=== PATIENT | female | born 1955 | race Caucasian/White ===

== ENCOUNTER 2016-10-26 11:07 | Emergency (ER) | payer OTHER ==
[~2016-10-26 11:07] MED LIST: AMLODIPINE BESY10 MG PO; AZULFIDINE500 MG PO; B COMPLEX; BIOTIN5000 MCG PO; BUPROPION HCL150 M2 PO; CYMBALTA60 MG PO; ESTRADIOL PO; EXCEDRIN MIGRAINE PO; EXCEDRIN TENSION HEA PO; FENTANYL75 MCG/HR TOP; HYDROCHLOROTHIA25 MG PO; IRON SUPPLEMEN325 MG PO; LEVOTHYROXINE100 MCG PO; MELATONIN5 MG PO; MULTIPLE VITAMIN PO; OMEGA 3340 MG PO; OMEPRAZOLE20 M1 PO; PHENERGAN EQUIV25 MG PO; POTASSIUM GLUC550 MG PO; RAMIPRIL10 MG PO; RESTFUL LEGS SL; TEMAZEPAM15 MG PO; TIZANIDINE HCL4 MG PO; VITAMIN E200 UNIT PO
--- NOTE | 2016-10-26 12:59 | ED NURSING NOTES ---
Clinical Report - Nurses [facility] [address] [place] [address] 10/26/2016 11:08 Patient: PEDRO LUIS ORELLANA V TRIAGE Triage time 11:19. Acuity: LEVEL 3. Chief Complaint: MIGRAINE HEADACHE and (nauseated). Alert. No acute distress. SEPSIS SCREEN: Sepsis Screen. Negative (no infection suspected/documented). JEMIMA COMA SCORE: [place] Coma Scale: 15- eyes open spontaneously (4); best verbal response- oriented x 4 (5); best motor response- obeys commands (6). --11:23 Fozia Aguilar R.N. 11:19 10/26/16. BP: 136/56. HR: 74. RR: 16. O2 saturation: 9%. Temp: 98.3 F. Pain level now 910. --11:23 Fozia Aguilar R.N. 12:14 10/26/16. O2 saturation: 95%. Additional comments: correction to triage 02 sat% . --12:14 Fozia Aguilar R.N. Weight: 101.1 kg stated. Height/Length: 67 inches Per Patient. BMI: 34.9. --11:19 Fozia Aguilar R.N. Medications Ambien Oral 10 mg, at bedtime. AmLODIPine Besylate Oral 10 mg, daily. BuPROPion HCl Oral 150 mg, 2x a day. Cymbalta Oral 40 mg, twice a day. Estradiol 9.5 mg q day (1-21 0. HCTZ 25 mg q dqy. Levothyroxine Sodium Oral 125 mcg, daily. LORazepam Oral 1 mg, 3x a day. --11:22 Fozia Aguilar R.N. MS Contin Oral 30 mg, 3x a day. Omeprazole Oral 20 mg, daily. Promethazine HCl Oral 25 mg, as needed. --11:22 Fozia Aguilar R.N. Allergies Ibuprofen. IV Contrast. --11:22 Fozia Aguilar R.N. History Arrived by private vehicle. Historian: patient. Unaccompanied. Primary physician (Taryn). This started last night 1800. 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 Excedrine this morning at 0200). PAST MEDICAL HX: Immunizations: up-to-date. SOCIAL HX: Never smoker. Occasional alcohol use. No drug use. No recent travel. No infectious disease exposure. No known contact with a sick individual. ABUSE ASSESSMENT: Abuse assessment: The patient was asked "Do you feel safe in your home?" and "Has anyone hurt you or threatened to hurt you?". No report of abuse. SELF HARM ASSESSMENT: A self harm assessment was performed. The patient answered "no" to the question "Do you have thoughts of harming or killing yourself?" and "Have you recently had thoughts about harming or killing others?". NUTRITIONAL RISK ASSESSMENT: The nutritional risk assessment revealed no deficiencies. FUNCTIONAL ASSESSMENT: Functional assessment: no impairments noted. LEARNING NEEDS ASSESSMENT: The learning needs assessment revealed no barriers. --: Fozia Aguilar R.N. PROBLEMS: Contusion. Fall. Headache. Esophagitis. Syncope. Hypothyroidism. Chest Pain. Cervical disc disorder. Anxiety Reaction. Gastroesophageal Reflux Disease. Asthma. Chronic pain syndrome. Hypercholesterolemia. Migraine Headache. Depression. Arthritis. Sleep Apnea. Hypertension. --: Fozia Aguilar R.N. ADDITIONAL SURGERIES: Appendectomy. Breast Biopsy. Cholecystectomy. Electric shock therapy. Left elbow. Left knee. Left shoulder. Oophorectomy. Repair of patent foramen ovale. Right knee. Salpingectomy. Thyroid Surgery. Tonsillectomy. --: Fozia Aguilar R.N. Interventions ID band on patient. Ambulatory. --11:23 Fozia Aguilar R.N. PHYSICAL ASSESSMENT Ambulatory to room. GENERAL / NEURO / PSYCH: Oriented X 4. She appears uncomfortable. Speech within normal limits. HEENT: No facial asymmetry noted. RESPIRATORY: Respirations not labored. CVS: Capillary refill less than 2 seconds. SKIN: Skin is warm and dry. --11:23 Fozia Aguilar R.N. NURSING PROGRESS NOTES Head of bed elevated. Lights dimmed. Two patient identifiers checked. Call light placed in reach. Side rails up x 2. Bed placed in lowest position. Brakes of bed on. Patient ready for evaluation- chart flagged. --11:23 Fozia Aguilar R.N. 11:31 10/26/2016 Dilaudid (HYDROmorphone HCl PF) IM 2 mg given. Given in the right gluteus ranjan. Allergies verified, confirmed 5 rights and sedative warning given to the patient. --11:31 Fozia Aguilar R.N. 11:31 10/26/2016 Phenergan (Promethazine HCl) IM 25 mg given. Given in the right gluteus ranjan. Allergies verified, confirmed 5 rights and sedative warning given to the patient. --11:31 Fozia Aguilar R.N. 12:11 10/26/2016 Dilaudid (HYDROmorphone HCl PF) IM 1 mg given. Given in the left gluteus ranjan. Allergies verified, confirmed 5 rights and sedative warning given to the patient. --12:11 Fozia Aguilar R.N. 12:11 10/26/2016 Ativan (LORazepam) IM 1 mg given. Given in the left gluteus ranjan. Allergies verified, confirmed 5 rights and sedative warning given to the patient. --12:11 Fozia Aguilar R.N. 12:13 10/26/16. BP: 123/62. HR: 73. RR: 15. O2 saturation: 95%. --12:15 Fozia Aguilar R.N. DISPOSITION / DISCHARGE 13:00. Departure time: 1300. Condition at departure: stable. No learning barriers present. Discharge instructions provided and reviewed with the patient. Reviewed referral to family practice for followup. Patient verbalized understanding. Written instructions provided in Occitan. The patient was discharged home and accompanied by family. She left the Emergency Department ambulatory and via private vehicle. Family member driving. Medication list reviewed and validated. --13:08 Fozia Aguilar R.N. 13:07 10/26/16. BP: 128/85. HR: 76. RR: 16. O2 saturation: 96%. Temp: 98.7 F. Pain level now 3/10. --13:08 Fozia Aguilar R.N. Locked/Released at 10/26/2016 13:08 by Fozia Aguilar R.N.
--- NOTE | 2016-10-26 12:59 | ED NURSING NOTES ---
Clinical Report - Nurses [facility] [address] [place] [address] 10/26/2016 11:08 Patient: PEDRO LUIS ORELLANA V TRIAGE Triage time 11:19. Acuity: LEVEL 3. Chief Complaint: MIGRAINE HEADACHE and (nauseated). Alert. No acute distress. SEPSIS SCREEN: Sepsis Screen. Negative (no infection suspected/documented). JEMIMA COMA SCORE: [place] Coma Scale: 15- eyes open spontaneously (4); best verbal response- oriented x 4 (5); best motor response- obeys commands (6). --11:23 Fozia Aguilar R.N. 11:19 10/26/16. BP: 136/56. HR: 74. RR: 16. O2 saturation: 9%. Temp: 98.3 F. Pain level now 910. --11:23 Fozia Aguilar R.N. 12:14 10/26/16. O2 saturation: 95%. Additional comments: correction to triage 02 sat% . --12:14 Fozia Aguilar R.N. Weight: 101.1 kg stated. Height/Length: 67 inches Per Patient. BMI: 34.9. --11:19 Fozia Aguilar R.N. Medications Ambien Oral 10 mg, at bedtime. AmLODIPine Besylate Oral 10 mg, daily. BuPROPion HCl Oral 150 mg, 2x a day. Cymbalta Oral 40 mg, twice a day. Estradiol 9.5 mg q day (1-21 0. HCTZ 25 mg q dqy. Levothyroxine Sodium Oral 125 mcg, daily. LORazepam Oral 1 mg, 3x a day. --11:22 Fozia Aguilar R.N. MS Contin Oral 30 mg, 3x a day. Omeprazole Oral 20 mg, daily. Promethazine HCl Oral 25 mg, as needed. --11:22 Fozia Aguilar R.N. Allergies Ibuprofen. IV Contrast. --11:22 Fozia Aguilar R.N. History Arrived by private vehicle. Historian: patient. Unaccompanied. Primary physician (Taryn). This started last night 1800. 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 Excedrine this morning at 0200). PAST MEDICAL HX: Immunizations: up-to-date. SOCIAL HX: Never smoker. Occasional alcohol use. No drug use. No recent travel. No infectious disease exposure. No known contact with a sick individual. ABUSE ASSESSMENT: Abuse assessment: The patient was asked "Do you feel safe in your home?" and "Has anyone hurt you or threatened to hurt you?". No report of abuse. SELF HARM ASSESSMENT: A self harm assessment was performed. The patient answered "no" to the question "Do you have thoughts of harming or killing yourself?" and "Have you recently had thoughts about harming or killing others?". NUTRITIONAL RISK ASSESSMENT: The nutritional risk assessment revealed no deficiencies. FUNCTIONAL ASSESSMENT: Functional assessment: no impairments noted. LEARNING NEEDS ASSESSMENT: The learning needs assessment revealed no barriers. --: Fozia Aguilar R.N. PROBLEMS: Contusion. Fall. Headache. Esophagitis. Syncope. Hypothyroidism. Chest Pain. Cervical disc disorder. Anxiety Reaction. Gastroesophageal Reflux Disease. Asthma. Chronic pain syndrome. Hypercholesterolemia. Migraine Headache. Depression. Arthritis. Sleep Apnea. Hypertension. --: Fozia Aguilar R.N. ADDITIONAL SURGERIES: Appendectomy. Breast Biopsy. Cholecystectomy. Electric shock therapy. Left elbow. Left knee. Left shoulder. Oophorectomy. Repair of patent foramen ovale. Right knee. Salpingectomy. Thyroid Surgery. Tonsillectomy. --: Fozia Aguilar R.N. Interventions ID band on patient. Ambulatory. --11:23 Fozia Aguilar R.N. PHYSICAL ASSESSMENT Ambulatory to room. GENERAL / NEURO / PSYCH: Oriented X 4. She appears uncomfortable. Speech within normal limits. HEENT: No facial asymmetry noted. RESPIRATORY: Respirations not labored. CVS: Capillary refill less than 2 seconds. SKIN: Skin is warm and dry. --11:23 Fozia Aguilar R.N. NURSING PROGRESS NOTES Head of bed elevated. Lights dimmed. Two patient identifiers checked. Call light placed in reach. Side rails up x 2. Bed placed in lowest position. Brakes of bed on. Patient ready for evaluation- chart flagged. --11:23 Fozia Aguilar R.N. 11:31 10/26/2016 Dilaudid (HYDROmorphone HCl PF) IM 2 mg given. Given in the right gluteus ranjan. Allergies verified, confirmed 5 rights and sedative warning given to the patient. --11:31 Fozia Aguilar R.N. 11:31 10/26/2016 Phenergan (Promethazine HCl) IM 25 mg given. Given in the right gluteus ranjan. Allergies verified, confirmed 5 rights and sedative warning given to the patient. --11:31 Fozia Aguilar R.N. 12:11 10/26/2016 Dilaudid (HYDROmorphone HCl PF) IM 1 mg given. Given in the left gluteus ranjan. Allergies verified, confirmed 5 rights and sedative warning given to the patient. --12:11 Fozia Aguilar R.N. 12:11 10/26/2016 Ativan (LORazepam) IM 1 mg given. Given in the left gluteus ranjan. Allergies verified, confirmed 5 rights and sedative warning given to the patient. --12:11 Fozia Aguilar R.N. 12:13 10/26/16. BP: 123/62. HR: 73. RR: 15. O2 saturation: 95%. --12:15 Fozia Aguilar R.N. DISPOSITION / DISCHARGE 13:00. Departure time: 1300. Condition at departure: stable. No learning barriers present. Discharge instructions provided and reviewed with the patient. Reviewed referral to family practice for followup. Patient verbalized understanding. Written instructions provided in Kazakh. The patient was discharged home and accompanied by family. She left the Emergency Department ambulatory and via private vehicle. Family member driving. Medication list reviewed and validated. --13:08 Fozia Aguilar R.N. 13:07 10/26/16. BP: 128/85. HR: 76. RR: 16. O2 saturation: 96%. Temp: 98.7 F. Pain level now 3/10. --13:08 Fozia Aguilar R.N. Locked/Released at 10/26/2016 13:08 by Fozia Aguilar R.N.
--- NOTE | 2016-10-26 12:59 | ED CLINICAL REPORT ---
Clinical Report - Physicians/Mid Levels [facility] [address] [place] [address] 10/26/2016 11:08 Patient: PEDRO LUIS ORELLANA V Time Seen: 11:21 Oct 12 2016. Arrived- By private vehicle. Historian- patient. CPT: ER phys charges level 4 (#[id number]). HISTORY OF PRESENT ILLNESS Chief Complaint: HEADACHE. Is still present. This started yesterday. Onset during light activity. It is described as similar to previous headaches. Located in the region of the right eye and frontal region. At its maximum, severity described as moderate. When seen in the E.D., severity described as moderate. Modifying factors: worsened by bright light and noise; relieved by nothing. The patient has had photophobia and nausea. No vomiting. Similar symptoms previously: Several times, as bad. Diagnosis: migraine. Recent medical care: Not recently seen/assessed. REVIEW OF SYSTEMS No fever, muscle aches, sinus pressure, ear pain or sore throat. No head injury, chest pain, difficulty breathing, cough or abdominal pain. No diarrhea, pain with urination or skin rash. All systems otherwise negative, except as recorded above. PAST HISTORY History of occasional well controlled chronic migraine headaches; has had evaluation with CT scan and neurologist. Esophagitis. Syncope. Hypothyroidism. Chest Pain. Cervical disc disorder. Anxiety Reaction. Gastroesophageal Reflux Disease. Asthma. Chronic pain syndrome. Hypercholesterolemia. Migraine Headache. Depression. Arthritis. Sleep Apnea. Hypertension. ADDITIONAL SURGERIES: Appendectomy. Breast Biopsy. Cholecystectomy. Electric shock therapy. Left elbow. Left knee. Left shoulder. Oophorectomy. Repair of patent foramen ovale. Right knee. Salpingectomy. Thyroid Surgery. Tonsillectomy. Medications: Other sleep medication: pt. does not recall. Other sleep medication: pt. does not recall. MS Contin Oral 10mg, at bedtime. MS Contin Oral 10mg, at bedtime. MS Contin Oral 30 mg, 3x a day. Omeprazole Oral 20 mg, daily. Promethazine HCl Oral 25 mg, as needed. Ambien Oral 10 mg, at bedtime. AmLODIPine Besylate Oral 10 mg, daily. BuPROPion HCl Oral 150 mg, 2x a day. Cymbalta Oral 40 mg, twice a day. Estradiol 9.5 mg q day (1-21 0. HCTZ 25 mg q dqy. Levothyroxine Sodium Oral 125 mcg, daily. LORazepam Oral 1 mg, 3x a day. Allergies: Ibuprofen. IV Contrast. SOCIAL HISTORY Never smoker. Occasional alcohol use. No drug use. ADDITIONAL NOTES The nursing notes have been reviewed. PHYSICAL EXAM Vital Signs: 10/26/2016 11:19 BP: 136/56. HR: 74. RR: 16. O2 saturation: 9%. Temp: 98.3 F. Appearance: Alert. Appears to be in pain. Patient in moderate distress. Eyes: Photophobia present. Pupils equal, round and reactive to light. ENT: Pharynx normal. Neck: Normal inspection. CVS: Normal heart rate and rhythm. Heart sounds normal. Pulses normal. Respiratory: No respiratory distress. Breath sounds normal. Abdomen: Nontender. Skin: Normal skin color. No rash. Neuro: Oriented X 3. Alert. Mood/affect normal. Speech normal. Cranial nerves normal (as tested). No cerebellar findings. No motor deficit. No sensory deficit. Reflexes normal. PROGRESS AND PROCEDURES Course of Care: Dilaudid 2 mg IM Phenergan 25 mg IM \Partial relief. Dilaudid 1 mg IM Ativan 1 mg IM 12:55 10/26/16. Ready to go home. Pain a 3/10. Patient/family counseled. Disposition: Discharged. Condition: stable and improved. CLINICAL IMPRESSION Acute recurrent migraine headache without aura- refractory to treatment. No status migrainosus, hemiplegia, ophthalmoplegia, persistent aura or cerebral infarction. Not relationship to menses. INSTRUCTIONS No strenuous activity. Rest. Your Current Medications: CONTINUE TAKING THE FOLLOWING MEDICATIONS: Ambien Oral : 10 mg at bedtime. AmLODIPine Besylate Oral : 10 mg daily. BuPROPion HCl Oral : 150 mg 2x a day. Cymbalta Oral : 40 mg twice a day. Estradiol 9.5 mg q day (1-21 0*. HCTZ 25 mg q dqy*. Levothyroxine Sodium Oral : 125 mcg daily. LORazepam Oral : 1 mg 3x a day. MS Contin Oral : 30 mg 3x a day. MS Contin Oral : 10mg at bedtime. MS Contin Oral : 10mg at bedtime. Omeprazole Oral : 20 mg daily. Other sleep medication: pt. does not recall*. Other sleep medication: pt. does not recall*. Promethazine HCl Oral : 25 mg, prn. Follow-up: Follow up with your doctor in one week. Call for an appointment. Understanding of the discharge instructions verbalized by patient. (Electronically signed by Michael Montiel MD 10/27/2016 20:56)
--- NOTE | 2016-10-26 12:59 | ED ORDER SUMMARY ---
..... Patient: PEDRO LUIS ORELLANA V OrderSheet [facility] VisitID: [id number] [address] [place] [address] 61y, F Registration Date/Time: 10/26/2016 ORDER SHEET Weight: 101.1 kg (stated) Allergies: Ibuprofen, IV Contrast GENERAL ORDERS: MEDICATION ORDERS: Dilaudid IM 2 mg (NOW) (11:10/26/2016 Laurie ANSARI) (11:31 Estefany R.N.) Phenergan IM 25 mg (HIGH ALERT MEDICATION, NOW) (11:10/26/2016 Laurie ANSARI) (11:31 Estefany Lockhart.N.) Dilaudid IM 1 mg (NOW) (12:10/26/2016 Laurie ANSARI) (12:11 Estefany R.N.) Ativan IM 1 mg (NOW) (12:10/26/2016 Laurie ANSARI) (12:11 Estefany R.N.) IV FLUIDS: ORDER SHEET NOTES: [Electronically signed by Fozia Aguilar R.N. (13:08 10/26/2016)] [Electronically signed by Michael Montiel MD (20:56 10/27/2016)] [Electronically locked/signed by Fozia Aguilar R.N. (13:10/26/2016)]
--- NOTE | 2016-10-26 12:59 | ED ORDER SUMMARY ---
..... Patient: PEDRO LUIS ORELLANA V OrderSheet [facility] VisitID: [id number] [address] [place] [address] 61y, F Registration Date/Time: 10/26/2016 ORDER SHEET Weight: 101.1 kg (stated) Allergies: Ibuprofen, IV Contrast GENERAL ORDERS: MEDICATION ORDERS: Dilaudid IM 2 mg (NOW) (11:10/26/2016 Laurie ANSARI) (11:31 Estefany R.N.) Phenergan IM 25 mg (HIGH ALERT MEDICATION, NOW) (11:10/26/2016 Laurie ANSARI) (11:31 Estefany Lockhart.N.) Dilaudid IM 1 mg (NOW) (12:10/26/2016 Laurie ANSARI) (12:11 Estefany R.N.) Ativan IM 1 mg (NOW) (12:10/26/2016 Laurie ANSARI) (12:11 Estefany R.N.) IV FLUIDS: ORDER SHEET NOTES: [Electronically signed by Fozia Aguilar R.N. (13:08 10/26/2016)] [Electronically signed by Michael Montiel MD (20:56 10/27/2016)] [Electronically locked/signed by Fozia Aguilar R.N. (13:10/26/2016)]
--- NOTE | 2016-10-27 20:56 | ED DISCHARGE INSTRUCTIONS ---
Patient: PEDRO LUIS ORELLANA V General Instructions Located Within [facility] VisitID: [id number] [address] [place] [address] 61y, F Registration Date/Time: 10/26/2016 Acute recurrent migraine headache without aura- refractory to treatment. No status migrainosus, hemiplegia, ophthalmoplegia, persistent aura or cerebral infarction. Not relationship to menses. INSTRUCTIONS No strenuous activity. Rest. Your Current Medications: CONTINUE TAKING THE FOLLOWING MEDICATIONS: Ambien Oral : 10 mg at bedtime. AmLODIPine Besylate Oral : 10 mg daily. BuPROPion HCl Oral : 150 mg 2x a day. Cymbalta Oral : 40 mg twice a day. Estradiol 9.5 mg q day (1-21 0*. HCTZ 25 mg q dqy*. Levothyroxine Sodium Oral : 125 mcg daily. LORazepam Oral : 1 mg 3x a day. MS Contin Oral : 30 mg 3x a day. MS Contin Oral : 10mg at bedtime. MS Contin Oral : 10mg at bedtime. Omeprazole Oral : 20 mg daily. Other sleep medication: pt. does not recall*. Other sleep medication: pt. does not recall*. Promethazine HCl Oral : 25 mg, prn. Follow-up: Follow up with your doctor in one week. Call for an appointment. Understanding of the discharge instructions verbalized by patient. ADDITIONAL INFORMATION Migraine Headache Migraine headaches are related to changes in blood flow to the brain. This causes throbbing or constant pain on one or both sides of the head. The pain may last from a few hours to several days. There is usually nausea, vomiting, sensitivity to light and sound, and blurred vision. A migraine attack may be triggered by emotional stress, hormone changes during the menstrual cycle, oral contraceptives, alcohol use, certain foods containing tyramine, eye strain, weather changes, missing meals, or too little or too much sleep. Home Care For This Headache: 1) If you were given pain medicine for this headache, do not drive yourself home . Arrange for a ride, instead. When you get home, try to sleep. You should feel much better when you wake up. 2) Migraine headaches may improve with an ice pack on the forehead or at the base of the skull. Heat to the back of your neck may relieve any neck spasm. 3) Drink only clear liquids or eat a very light diet to avoid nausea/vomiting until symptoms improve. Preventing Future Headaches: 1) Pay attention to those factors that seem to trigger your headache. Try to avoid them when you can. If you have frequent headaches, it is useful to keep a diary of what you were doing, feeling or eating in the hours before each attack. Show this to your doctor to help find the cause of your headaches. a) If you feel that stress is a factor in your headaches, look at the sources of stress in your life. Find ways to release the build-up of those stresses by using regular exercise, relaxation methods (yoga, meditation), bio-feedback or simply taking time-out for yourself. For more information about this, consult your doctor or go to a local bookstore and review books and tapes on this subject. b) Tyramine is a substance present in the following foods : chocolate, yogurt, all cheeses except cottage cheese and cream cheese. smoked or pickled fish and meat (including parra, caviar, bologna, pepperoni, salami), liver, avocados, bananas, figs, raisins, and red wine. Be aware that these foods may trigger a migraine in some persons. Try taking these foods out of your diet for 1-2 months to see if this reduces headache frequency. Treating Future Attacks: 1) At the first sign of a headache, take time out if possible. Find a quiet, dark, comfortable place to sit or lie down. Let yourself relax or sleep. 2) An ice pack on the forehead or area of greatest pain may help. If you are having muscle spasm and tightness of the neck, a heating pad and massage to this area may be helpful. 3) If you have been prescribed a medicine to stop a migraine headache, use this at the very first warning sign of the headache (aura or initial pain) for best results. Follow Up with your doctor if the headache is not better within the next 24 hours. If you have frequent headaches you should discuss a treatment plan with your primary care doctor. Ask if you can have medicine to take at home the next time you get a bad headache. Poorly controlled chronic headaches may require a referral to a neurologist (headache specialist). Get Prompt Medical Attention if any of the following occur: Your head pain gets worse, or does not improve within 24 hours Repeated vomiting (cant keep liquids down) Sinus or ear or throat pain (not already reported) Fever of 100.4 F (38 C) or higher, or as directed by your healthcare provider Stiff neck Extreme drowsiness, confusion or fainting Dizziness, vertigo (dizziness with spinning sensation) Weakness of an arm or leg or one side of the face Difficulty with speech or vision You have been given the following additional information: Headache, Migraine (Classical) No strenuous activity. Rest. (Electronically signed by Michael Montiel MD 10/27/2016 20:56)
--- NOTE | 2016-10-27 20:56 | ED MED RECONCILIATION SUMMARY ---
Patient: PEDRO LUIS ORELLANA V Medication Reconciliation Report [facility] VisitID: [id number] [address] [place] [address] 61y, F Registration Date/Time: 10/26/2016 Weight: 101.1 kg Height/Length: 67 in. BMI: 34.9 ALLERGIES: Ibuprofen, IV Contrast The patient's Home Medications are listed below: CONTINUE TAKING THE FOLLOWING MEDICATIONS: Ambien Oral 10 mg, at bedtime AmLODIPine Besylate Oral 10 mg, daily BuPROPion HCl Oral 150 mg, 2x a day Cymbalta Oral 40 mg, twice a day Estradiol 9.5 mg q day (1-21 0 HCTZ 25 mg q dqy Levothyroxine Sodium Oral 125 mcg, daily LORazepam Oral 1 mg, 3x a day MS Contin Oral 30 mg, 3x a day MS Contin Oral 10mg, at bedtime MS Contin Oral 10mg, at bedtime Omeprazole Oral 20 mg, daily Other sleep medication: pt. does not recall Other sleep medication: pt. does not recall Promethazine HCl Oral 25 mg The source(s) of the original Home Medication information: Not obtained. The following Medications were given to the patient in the Emergency Department: Dilaudid [IM] IM 2 mg, administered: 10/26/2016 11:31:00 AM Phenergan [IM] IM 25 mg, administered: 10/26/2016 11:31:00 AM Dilaudid [IM] IM 1 mg, administered: 10/26/2016 12:11:00 PM Ativan [IM] IM 1 mg, administered: 10/26/2016 12:11:00 PM The following Medications were prescribed to the patient: None.
--- NOTE | 2016-10-27 20:56 | ED MAR SUMMARY ---
..... Medication Administration Record [facility] [address] [place] [address] Patient: PEDRO LUIS ORELLANA V Visit ID: [id number] 61y, F Weight: 101.1 kg Height/Length: 67 in BMI: 34.9 ALLERGIES: Ibuprofen, IV Contrast Given 11:10/26/2016 Fozia Aguilar R.N. Medication Administered: DILAUDID [IM] (HYDROMORPHONE HCL PF), Dose: 2 mg IM. Medication Ordered: Dilaudid IM 2 mg (NOW). Given :10/26/2016 Fozia Aguilar R.N. Medication Administered: PHENERGAN [IM] (PROMETHAZINE HCL), Dose: 25 mg IM. Medication Ordered: Phenergan IM 25 mg (HIGH ALERT MEDICATION, NOW). Given :10/26/2016 Fozia Aguilar R.N. Medication Administered: DILAUDID [IM] (HYDROMORPHONE HCL PF), Dose: 1 mg IM. Medication Ordered: Dilaudid IM 1 mg (NOW). Given 12:10/26/2016 Fozia Aguilar R.NHeather Medication Administered: ATIVAN [IM] (LORAZEPAM), Dose: 1 mg IM. Medication Ordered: Ativan IM 1 mg (NOW).
--- NOTE | 2016-10-27 20:56 | ED MED RECONCILIATION SUMMARY ---
Patient: PEDRO LUIS ORELLANA V Medication Reconciliation Report [facility] VisitID: [id number] [address] [place] [address] 61y, F Registration Date/Time: 10/26/2016 Weight: 101.1 kg Height/Length: 67 in. BMI: 34.9 ALLERGIES: Ibuprofen, IV Contrast The patient's Home Medications are listed below: CONTINUE TAKING THE FOLLOWING MEDICATIONS: Ambien Oral 10 mg, at bedtime AmLODIPine Besylate Oral 10 mg, daily BuPROPion HCl Oral 150 mg, 2x a day Cymbalta Oral 40 mg, twice a day Estradiol 9.5 mg q day (1-21 0 HCTZ 25 mg q dqy Levothyroxine Sodium Oral 125 mcg, daily LORazepam Oral 1 mg, 3x a day MS Contin Oral 30 mg, 3x a day MS Contin Oral 10mg, at bedtime MS Contin Oral 10mg, at bedtime Omeprazole Oral 20 mg, daily Other sleep medication: pt. does not recall Other sleep medication: pt. does not recall Promethazine HCl Oral 25 mg The source(s) of the original Home Medication information: Not obtained. The following Medications were given to the patient in the Emergency Department: Dilaudid [IM] IM 2 mg, administered: 10/26/2016 11:31:00 AM Phenergan [IM] IM 25 mg, administered: 10/26/2016 11:31:00 AM Dilaudid [IM] IM 1 mg, administered: 10/26/2016 12:11:00 PM Ativan [IM] IM 1 mg, administered: 10/26/2016 12:11:00 PM The following Medications were prescribed to the patient: None.
--- NOTE | 2016-10-27 20:56 | ED MAR SUMMARY ---
..... Medication Administration Record [facility] [address] [place] [address] Patient: PEDRO LUIS ORELLANA V Visit ID: [id number] 61y, F Weight: 101.1 kg Height/Length: 67 in BMI: 34.9 ALLERGIES: Ibuprofen, IV Contrast Given 11:10/26/2016 Fozia Aguilar R.N. Medication Administered: DILAUDID [IM] (HYDROMORPHONE HCL PF), Dose: 2 mg IM. Medication Ordered: Dilaudid IM 2 mg (NOW). Given :10/26/2016 Fozia Aguilar R.N. Medication Administered: PHENERGAN [IM] (PROMETHAZINE HCL), Dose: 25 mg IM. Medication Ordered: Phenergan IM 25 mg (HIGH ALERT MEDICATION, NOW). Given :10/26/2016 Fozia Aguilar R.N. Medication Administered: DILAUDID [IM] (HYDROMORPHONE HCL PF), Dose: 1 mg IM. Medication Ordered: Dilaudid IM 1 mg (NOW). Given 12:10/26/2016 Fozia Aguilar R.NHeather Medication Administered: ATIVAN [IM] (LORAZEPAM), Dose: 1 mg IM. Medication Ordered: Ativan IM 1 mg (NOW).
== END 2016-10-26 13:00 | disposition home or self-care (01) ==
LOC: ED SRH 11:07
DX: G43.019 Migraine without aura, intractable, without status migrainosus (principal); I10 Essential (primary) hypertension; K21.9 Gastro-esophageal reflux disease without esophagitis; Z91.041 Radiographic dye allergy status; Z88.6 Allergy status to analgesic agent; E03.9 Hypothyroidism, unspecified; Z79.899 Other long term (current) drug therapy; Z79.891 Long term (current) use of opiate analgesic

== ENCOUNTER 2016-11-13 10:36 | Outpatient (CLI) | payer OTHER ==
--- NOTE | 2016-11-13 12:35 | DIAGNOSTIC IMAGING REPORT ---
PROCEDURE: XR UPPER GI WITH AIR INDICATION: ABD PAIN TECHNIQUE: Real time fluoroscopy was used on the upper GI system. Total fluoro time 1.4 minutes. Cumulative dose 1254.84 mGy 44 images obtained including cine imaging and last image hold screen capture images. COMPARISON: CT abdomen/pelvis 11/01/2014. FINDINGS: Normal swallowing and esophageal peristalsis. No evidence of a hiatal hernia but mild spontaneous gastroesophageal reflux was noted. No evidence of esophagitis or stricture. Stomach, duodenal bulb and duodenal sweep have a normal appearance. Twp ring-like structures noted in the lower lung consistent with a PFO repair. IMPRESSION: 1. Mild spontaneous gastroesophageal reflux without evidence of a hiatal hernia
== END 2016-11-13 23:00 ==
LOC: XR SRH 10:36
DX: R10.9 Unspecified abdominal pain (principal); K21.9 Gastro-esophageal reflux disease without esophagitis

== ENCOUNTER 2016-12-17 03:45 | Emergency (ER) | payer OTHER ==
--- NOTE | 2016-12-17 07:15 | DIAGNOSTIC IMAGING REPORT ---
PROCEDURE: CT HEAD WITHOUT CONTRAST INDICATION: DIZZINESS TECHNIQUE: Axial CT images were acquired through the head. Coronal and sagittal reformations were created. COMPARISON: 02/15/2016 FINDINGS: No intracranial hemorrhage or extraaxial fluid collections. Ventricles are normal in size, shape and position. There is no mass, mass effect or midline shift. The batista-white matter differentiation is normal. There is no edema. The calvarium is intact. The paranasal sinuses and mastoid air cells are normally aerated. The extracranial soft tissues and orbits are normal. IMPRESSION: 1. No CT evidence of acute intracranial process. 2. Findings discussed with Dr. Lee at 07:[address] scans at this facility use dose modulation, iterative reconstruction, and/or weight-based dosing when appropriate to reduce radiation dose to as low as reasonably achievable.
--- NOTE | 2016-12-17 07:17 | DIAGNOSTIC IMAGING REPORT ---
PROCEDURE: XR CHEST 1 VIEW INDICATION: SYNCOPE TECHNIQUE: Single view chest. 04:18 hours COMPARISON: 12/22/2015 FINDINGS: The cardiopulmonary contour and central vasculature are stable, within normal limits. The lungs are mildly hyperinflated, hyperlucent in the upper lobes, but clear without focal consolidation, pleural effusion or pneumothorax. The osseous structures are intact. IMPRESSION: 1. No acute process. 2. Mild emphysema.
--- NOTE | 2016-12-17 07:43 | ED ORDER SUMMARY ---
..... Patient: PEDRO LUIS ORELLANA V OrderSheet [facility] VisitID: [id number] [place] [address] 61y, F Registration Date/Time: 12/17/2016 ORDER SHEET Weight: 98.4 kg (stated) Allergies: Ibuprofen, IV Contrast, Latex, Iodine GENERAL ORDERS: EKG - ER Stat (04:02 12/17/2016 DDavis R.N. per protocol) (Ack 4:17 [employer] Motor [employer] Generator Repairer) (4:20 Nelda) CBC w Diff Urgent (04:03 12/17/2016 DDavis R.N. per protocol) (4:11 DDavis R.N.) CMP Urgent (04:12/17/2016 DDavis R.N. per protocol) (4:12 DDavis R.N.) Chest 1V Urgent (04:09 12/17/2016 DDavis R.N. verbal order read back to Juliana ANSARI) (Ack 4:17 [employer] ER Propulsion Motor And Generator Repairer) (4:29 Lisette) PT with INR Urgent (04:11 12/17/2016 DDavis R.N. verbal order read back to Juliana ANSARI) (4:12 DDavis R.N.) PTT Urgent (04:11 12/17/2016 DDavis R.N. verbal order read back to Juliana ANSARI) (4:12 DDavis R.N.) CPK Urgent (04:11 12/17/2016 DDavis R.N. verbal order read back to Juliana ANSARI) (4:12 DDavis R.N.) Troponin-I Urgent (04:11 12/17/2016 DDavis R.N. verbal order read back to Juliana ANSARI) (4:12 DDavis R.N.) BNP Urgent (04:11 12/17/2016 DDavis R.N. verbal order read back to Juliana ANSARI) (4:12 DDavis R.N.) Amylase Urgent (04:11 12/17/2016 DDavis R.N. verbal order read back to Juliana ANSARI) (4:12 DDavis R.N.) Lipase Urgent (04:11 12/17/2016 DDavis R.N. verbal order read back to Juliana ANSARI) (4:12 DDavis R.N.) UA-Culture if indicated Urgent (04:11 12/17/2016 DDavis R.N. verbal order read back to Juliana ANSARI) (Ack 4:17 [employer]ulsion Motor And Generator Repairer) (4:20 Amiraimamichael) Vitals - Orthostatic (04:11 12/17/2016 DDavis R.N. verbal order read back to Juliana ANSARI) (Ack 4:17 [employer] ER [employer]ulsion Motor And Generator Repairer) (4:46 DDavis R.N.) Urine Drug Screen Urgent (04:36 12/17/2016 Juliana ANSARI) (4:42 DDavis R.N.) TSH Urgent (04:45 12/17/2016 Juliana ANSARI) (4:46 DDavis R.N.) CT Head wo Cont Urgent (05:03 12/17/2016 Juliana ANSARI) (Ack 5:10 Nelda) (6:44 Lisette) MEDICATION ORDERS: IV FLUIDS: IV NS : initial bolus 250 mL (1000 mL/hr), then 100 mL/hr for 6h (NOW); Urgent (After orthostatics please) (04:12 12/17/2016 DDavis R.N. verbal order read back to Juliana ANSARI) (4:35 DDavis R.N.) ORDER SHEET NOTES: [Electronically signed by Lucio Helton R.N. (08:01 12/17/2016)] [Electronically signed by Ovidio Lee MD (09:24 12/17/2016)] [Electronically locked/signed by Lucio Helton R.N. (08:01 12/17/2016)]
--- NOTE | 2016-12-17 07:43 | ED NURSING NOTES ---
Clinical Report - Nurses [facility] [address] [place] [address] 12/17/2016 3:45 Patient: PEDRO LUIS ORELLANA V TRIAGE Triage time 03:48. Acuity: LEVEL 3. Chief Complaint: FALL OUT OF BED (syncope). Alert. No acute distress. KAYLIN COMA SCORE: Kaylin Coma Scale: 15- eyes open spontaneously (4); best verbal response- oriented x 4 (5); best motor response- obeys commands (6). --03:53 Lino Moore R.N. 03:48 12/17/16. BP: 137/69. HR: 92. RR: 17 (regular). O2 saturation: 94% on room air. Temp: 98.4 F (oral). Pain level now: 7/10. Additional comments: joint pain. --03:53 Lino Moore R.N. Weight: 98.4 kg stated. Height/Length: 67 inches Per Patient. BMI: 34. --03:49 Lino Moore R.N. Allergies Ibuprofen. IV Contrast. --03:49 Lino Moore R.N. Latex. --03:49 Lino Moore R.N. Iodine. --03:49 Lino Moore R.N. History Arrived by EMS, and ([facility]). Historian: patient. Unaccompanied. This occurred just prior to arrival. SOCIAL HX: Never smoker. Occasional alcohol use. No drug use. ( denies HI?/SI). ABUSE ASSESSMENT: No report of abuse. SELF HARM ASSESSMENT: A self harm assessment was performed. The patient answered "no" to the question "Do you have thoughts of harming or killing yourself?" and "Are you here because you tried to hurt yourself?". NUTRITIONAL RISK ASSESSMENT: The nutritional risk assessment revealed no deficiencies. FUNCTIONAL ASSESSMENT: Functional assessment: no impairments noted. LEARNING NEEDS ASSESSMENT: The learning needs assessment revealed no barriers. FALL RISK ASSESSMENT: Fall risk assessment completed. Risk factors identified include patient history of fall and fainting and impairment of mobility. SKIN INTEGRITY ASSESSMENT: Skin integrity risk assessment completed. No skin integrity risk identified. --03:53 Lino Moore R.N. PROBLEMS: Chronic Headache. Contusion. Fall. Headache. Esophagitis. Syncope. Hypothyroidism. Chest Pain. Cervical disc disorder. Anxiety Reaction. Gastroesophageal Reflux Disease. Asthma. Chronic pain syndrome. Hypercholesterolemia. Migraine Headache. Depression. Arthritis. Sleep Apnea. Hypertension. --03:50 Lino Moore R.N. ADDITIONAL SURGERIES: Appendectomy. Breast Biopsy. Cholecystectomy. Electric shock therapy. Left elbow. Left knee. Left shoulder. Oophorectomy. Repair of patent foramen ovale. Right knee. Salpingectomy. Thyroid Surgery. Tonsillectomy. --03:50 Lino Moore R.N. Interventions ID band on patient. To treatment room. --03:53 Lino Moore R.N. PHYSICAL ASSESSMENT To room via stretcher. GENERAL / NEURO / PSYCH: Alert. Oriented X 4. ( pt states that she has been feeling dizzy "since yesterday" with a "migraine." she states that she awoke from sleep and fell next to the bed, "onto my doggie" she states that did NOT pass out or lose consciousness. she denies injuries.). CVS: Capillary refill less than 2 seconds. EXTREMITIES: ( PT STATES HAVING CHRONIC JOINT PAIN, WITH NO NEW ABNORMALITIES). SKIN: Skin intact. Skin is warm and dry. ( pt denies injuries). --03:58 Lino Moore R.N. RESPIRATORY: Respirations not labored. --03:58 Lino Moore R.N. CVS: Cardiac rhythm: normal sinus rhythm. ( NSR on threat monitoring analyst). --04:01 Lino Moore R.N. GI / : ( nausea, denies vomiting). --04:05 Lino Moore R.N. NURSING PROGRESS NOTES Patient gowned. Reassurance given. Two patient identifiers checked. Call light placed in reach. Side rails up x 1. Bed placed in lowest position. Brakes of bed on. Patient ready for evaluation- chart flagged. Patient waiting for evaluation. --03:59 Lino Moore R.N. 03:59 12/17/16. O2 saturation: 88% on room air. O2 started via nasal cannula at 2 liters/minute. --03:59 Lino Moore R.N. 03:59 12/17/16. O2 saturation: 95% on nasal cannula at 2 liters/minute. --04:00 Lino Moore R.N. ( 0409: I notified the doctor that the patient was present in the ER, notified him of the patient's current status and chief complaint, orders received.). --04:16 Lino Moore R.N. EKG time: (0411 AM). EKG was ordered, performed by a tech and shown to the ED physician. --04:21 Afsaneh Victoria 8 fr in/out catheterization. During procedure hand hygiene observed and sterile equipment and aseptic technique used. Return of less than 50 mL yellow-colored clear urine. She tolerated procedure well (with assistance from Afsaneh, board saw runner). Patient ID band checked for patient name and birthdate: patient confirmed. Catheterized urine collected with return of yellow-colored clear urine; sample sent to lab. Specimen labeled in the presence of the patient. --04:24 Emerita Cordon R.N. 04:25 12/17/2016 Site #1 started via IV in the left with an 20g angiocath, with aseptic technique and good blood return; one attempt. Blood drawn: rainbow set. Labeled in the presence of the patient and sent to the lab. Saline lock flushed with 10 mL saline (Started by Ike Peoples RN). --04:35 Lino Moore R.N. 04:35 12/17/2016 Started bag #1 250 mL IV Fluids IV NS (Saline); bolus of 250 mL over 15 minute(s) then at 100 mL/hr over 6 hour(s) via site #1 via IV pump. Allergies verified and confirmed 5 rights. IV patency established. IV site checked: no pain, redness, or swelling. IV flushed thoroughly pre- and post-medication administration. Completed per protocol. --04:35 Lino Moore R.N. ( I helped the patient to bedside commode, patient unstable on her feet). --04:36 Lino Moore R.N. ( Results of orthostatic vitals reported to Dr. Lee). --04:46 Lino Moore R.N. ( i helped the patient to the bedside commode). --06:38 Lino Moore R.N. ( Report given to Lucio Martinez RN). --07:01 Lino Moore R.N. 07:12 12/17/16. --07:12 Lucio Helton R.N. 07:12/17/16. BP: 122/59. HR: 84. RR: 14. O2 saturation: 97% on nasal cannula at 2 liters/minute. --07:12 Lucio Helton R.N. 07:13 12/17/16. Cardiac rhythm: normal sinus rhythm; (85). --07:13 Lucio Helton R.N. 07:12/17/16. Reassessment after medication administered. Overall patient status is the same- she states feels the same. --07:13 Lucio Helton R.N. 07:12/17/16. GENERAL / NEURO / PSYCH: Alert. Oriented X 4. RESPIRATORY: No respiratory distress. CVS: Capillary refill less than 2 seconds. GI / : Abdomen nontender. EXTREMITIES: Neuro-vascular status intact to the extremity. --07:13 Lucio Helton R.N. 07:12/17/16. ( Pt states she is still slightly dizzy). --07:13 Lucio Helton R.N. 07:12/17/16. Patient informed about reason for wait and about plan of care. --07:16 Lucio Helton R.N. 07:12/17/16. Patient waiting for disposition. --07:16 Lucio Helton R.N. 07:12/17/16. ( Pt states she feels better while lying down). --07:16 Lucio Helton R.N. <<STRICKEN ENTRY-- 07:25 12/17/16. --07:25 Sanford Zee --END STRIKE>> Correction --07:28 Sanford Zee 07:24 12/17/16. BP: 121/57. HR: 84. Additional comments: Lying. --07:25 Kalen Zeesialeshia 07:25 12/17/16. BP: 117/71. HR: 86. Additional comments: Sitting. --07:26 Kalen Zeesialeshia <<STRICKEN ENTRY-- 07:25 12/17/16. --07:26 Kalen Zeesialeshia --END STRIKE>> Correction --07:28 Kalen Zeesialeshia 07:26 12/17/16. BP: 118/66. HR: 91. Additional comments: Standing; Pt stated she felt slightly dizzy from sitting to standing. --07:28 Kalen Zeesialeshia <<STRICKEN ENTRY-- 07:28 12/17/16. --07:28 Sanford Zee --END STRIKE>> Correction --07:28 Kalen Zeesialeshia 07:45 12/17/2016 IV Fluids IV NS Discontinued: bag #1 infused upon discharge. Total amount infused: 900 mL. IV patency established. IV site checked: no pain, redness, or swelling. IV flushed thoroughly. --07:50 Lucio Helton R.N. DISPOSITION / DISCHARGE 07:51 12/17/16. Cardiac rhythm: normal sinus rhythm. Condition at departure: improved. The goals identified in the patient's plan of care were met. No learning barriers present. Discharge instructions provided and reviewed with the patient. Reviewed warnings. Reviewed medication(s). Treatments reviewed. Patient verbalized understanding. Written instructions provided in Martiniquais. The patient was discharged by the physician. She was discharged home and accompanied by family. She left the Emergency Department ambulatory and via private vehicle. Family member driving. FALL RISK ASSESSMENT: Fall risk assessment completed. No fall risk identified. --07:51 Lucio Helton R.N. 07:49 12/17/16. BP: 119/72. HR: 81. RR: 16. O2 saturation: 97% on room air. Temp: 98.2 F (oral). Pain level now: 0/10. --07:51 Lucio Helton R.N. 07:51 12/17/16. Departure time: 07:51. --07:51 Lucio Helton R.N. Locked/Released at 12/17/2016 8:01 by Lucio Helton R.N.
--- NOTE | 2016-12-17 07:43 | ED ORDER SUMMARY ---
..... Patient: PEDRO LUIS ORELLANA V OrderSheet [facility] VisitID: [id number] [place] [address] 61y, F Registration Date/Time: 12/17/2016 ORDER SHEET Weight: 98.4 kg (stated) Allergies: Ibuprofen, IV Contrast, Latex, Iodine GENERAL ORDERS: EKG - ER Stat (04:02 12/17/2016 DDavis R.N. per protocol) (Ack 4:17 [employer] ER Manager Developmental) (4:20 Nelda) CBC w Diff Urgent (04:03 12/17/2016 DDavis R.N. per protocol) (4:11 DDavis R.N.) CMP Urgent (04:12/17/2016 DDavis R.N. per protocol) (4:12 DDavis R.N.) Chest 1V Urgent (04:09 12/17/2016 DDavis R.N. verbal order read back to Juliana ANSARI) (Ack 4:17 [employer] ER Manager Developmental) (4:29 Lisette) PT with INR Urgent (04:11 12/17/2016 DDavis R.N. verbal order read back to Juliana ANSARI) (4:12 DDavis R.N.) PTT Urgent (04:11 12/17/2016 DDavis R.N. verbal order read back to Juliana ANSARI) (4:12 DDavis R.N.) CPK Urgent (04:11 12/17/2016 DDavis R.N. verbal order read back to Juliana ANSARI) (4:12 DDavis R.N.) Troponin-I Urgent (04:11 12/17/2016 DDavis R.N. verbal order read back to Juliana ANSARI) (4:12 DDavis R.N.) BNP Urgent (04:11 12/17/2016 DDavis R.N. verbal order read back to Juliana ANSARI) (4:12 DDavis R.N.) Amylase Urgent (04:11 12/17/2016 DDavis R.N. verbal order read back to Juliana ANSARI) (4:12 DDavis R.N.) Lipase Urgent (04:11 12/17/2016 DDavis R.N. verbal order read back to Juliana ANSARI) (4:12 DDavis R.N.) UA-Culture if indicated Urgent (04:11 12/17/2016 DDavis R.N. verbal order read back to Juliana ANSARI) (Ack 4:17 [employer] ER Manager Developmental) (4:20 Amiraimamichael) Vitals - Orthostatic (04:11 12/17/2016 DDavis R.N. verbal order read back to Juliana ANSARI) (Ack 4:17 [employer] ER Manager Developmental) (4:46 DDavis R.N.) Urine Drug Screen Urgent (04:36 12/17/2016 Juliana ANSARI) (4:42 DDavis R.N.) TSH Urgent (04:45 12/17/2016 Juliana ANSARI) (4:46 DDavis R.N.) CT Head wo Cont Urgent (05:03 12/17/2016 Juliana ANSARI) (Ack 5:10 Nelda) (6:44 Lisette) MEDICATION ORDERS: IV FLUIDS: IV NS : initial bolus 250 mL (1000 mL/hr), then 100 mL/hr for 6h (NOW); Urgent (After orthostatics please) (04:12 12/17/2016 DDavis R.N. verbal order read back to Juliana ANSARI) (4:35 DDavis R.N.) ORDER SHEET NOTES: [Electronically signed by Lucio Helton R.N. (08:01 12/17/2016)] [Electronically signed by Ovidio Lee MD (09:24 12/17/2016)] [Electronically locked/signed by Lucio Helton R.N. (08:01 12/17/2016)]
--- NOTE | 2016-12-17 07:43 | ED CLINICAL REPORT ---
Clinical Report - Physicians/Mid Levels [facility] [address] [place] [address] 12/17/2016 3:45 Patient: PEDRO LUIS ORELLANA V Time Seen: 03:57. Arrived- By ambulance. Historian- patient and EMS personnel. HISTORY OF PRESENT ILLNESS Location of injuries- (none). Chief Complaint: FALL. The injury occurred just prior to arrival. Fell out of bed. Occurred at home. The patient complains of moderate pain (chronic - she attributes this to her arthritis. She denies any pain or injuries from her fall). No blow to the head, neck pain or loss of consciousness. Not dazed. REVIEW OF SYSTEMS The patient has had dizziness. No chills, fever, sweats, calf pain or chest pain. No cough, difficulty breathing, pedal edema, abdominal pain or constipation. No diarrhea, nausea, vomiting or urinary problems. The patient has had palpitations (chronically - she has previously been instructed to have a Holter monitor performed but she "decided not to do it." hours). She has had generalized joint pain (chronically). Has had similar previous symptoms of joint pain. All systems otherwise negative, except as recorded above. PAST HISTORY Problems: Chronic Headache. Contusion. Fall. Headache. Esophagitis. Syncope. Hypothyroidism. Chest Pain. Cervical disc disorder. Anxiety Reaction. Gastroesophageal Reflux Disease. Asthma. Chronic pain syndrome. Hypercholesterolemia. Migraine Headache. Depression. Arthritis. Sleep Apnea. Hypertension. Additional Surgeries: Appendectomy. Breast Biopsy. Cholecystectomy. Electric shock therapy. Left elbow. Left knee. Left shoulder. Oophorectomy. Repair of patent foramen ovale. Right knee. Salpingectomy. Thyroid Surgery. Tonsillectomy. Medications: HCTZ 25 mg q dqy. HCTZ 25 mg q dqy. MS Contin Oral 30 mg, 3x a day. MS Contin Oral 30 mg, 3x a day. Ambien Oral 10 mg, at bedtime. AmLODIPine Besylate Oral 10 mg, daily. BuPROPion HCl Oral 150 mg, 2x a day. Cymbalta Oral 40 mg, twice a day. Estradiol 9.5 mg q day (1-21 0. Levothyroxine Sodium Oral 125 mcg, daily. LORazepam Oral 1 mg, 3x a day. MS Contin Oral 10mg, at bedtime. Allergies: Ibuprofen. Iodine. IV Contrast. Latex. SOCIAL HISTORY Never smoker. Occasional alcohol use. No drug use. ADDITIONAL NOTES The nursing notes have been reviewed. PHYSICAL EXAM Vital Signs: 12/17/2016 03:48 BP: 137/69. HR: 92. RR: 17. O2 saturation: 94%. Temp: 98.4 F. Pain level now: 02/23. Have been reviewed. Appearance: Alert. Eyes: Pupils equal, round and reactive to light. EOM intact. ENT: No dental injury. Pharynx normal. Neck: Painless ROM. Non-tender. No vertebral tenderness. CVS: Heart sounds normal. Pulses normal. Respiratory: Breath sounds normal. Abdomen: No visible injury. Soft and nontender. Bowel sounds normal. No mass. Back: ROM normal. No vertebral point tenderness. Skin: Skin intact. Skin warm and dry. Normal skin color. Normal skin turgor. Extremities: Pelvis stable. Extremities atraumatic. No lower extremity edema. Neuro: No motor deficit. No sensory deficit. LABS, X-RAYS, AND EKG EKG: No acute process. Normal EKG. Rate: 83. EKG unchanged when compared with prior EKG. (15 February 2016). The study has been independently viewed by me. Chest X-ray: (IMPRESSION: 1. No acute process. 2. Mild emphysema.). The X-rays were interpreted by the radiologist and contemporaneously by me. CT Head: (IMPRESSION: 1. No CT evidence of acute intracranial process.). The study was interpreted contemporaneously by me and discussed with the radiologist. Laboratory Tests: UA-Culture if indicated: (ROX: 12/17/2016 04:15) ( MsgRcvd 12/17/2016 04:48) Final results Test Result Flag Units (Reference) URINE COLOR YELLOW URINE APPEARANCE CLEAR URINE GLUCOSE NEGATIVE (NEGATIVE) URINE BILIRUBIN NEGATIVE (NEGATIVE) URINE KETONE NEGATIVE (NEGATIVE) URINE SPECIFIC GRAVITY 1.020 (1.010-1.030) URINE PH 6.0 (5.0-8.0) URINE PROTEIN NEGATIVE (NEGATIVE) URINE UROBILINOGEN 0.2 EU/dL (0.2-1.0) URINE NITRITE NEGATIVE (NEGATIVE) URINE BLOOD NEGATIVE (NEGATIVE) URINE LEUK ESTERASE NEGATIVE (NEGATIVE) URINE RBC 0-1 rbc/hpf (0-1) URINE WBC 0-1 wbc/hpf (0-1) URINE EPITHELIAL CELLS 0-1 EPI/hpf (0-5) URINE BACTERIA NONE SEEN (NONE SEEN) URINE COMMENT CULT NOT INDICATED URINE CULTURES ARE SET-UP BASED ON THE FOLLOWING CRITERIA:POSITIVE NITRITEPOSITIVE LEUKOCYTE ESTERASEGREATER THAN 10 WHITE BLOOD CELLSMODERATE (2+) OR GREATER BACTERIA CBC w Diff: (ROX: 12/17/2016 04:00) ( MsgRcvd 12/17/2016 04:47) Final results Test Result Flag Units (Reference) WHITE BLOOD COUNT 9.4 K/uL (4.5-11.5) RED BLOOD COUNT 4.46 M/uL (4.00-5.20) HEMOGLOBIN 12.6 gm/dL (12.0-16.0) HEMATOCRIT 39.1 % (36.0-46.0) MEAN CELL VOLUME 88 fL (80-100) MEAN CORPUSCULAR HGB 28 pg (26-34) MEAN CORPUSCULAR HGB CONC 32 g/dL (31-37) RED CELL DISTRIBUTION WIDTH 16.1 H % (11.6-14.8) PLATELET COUNT 338 K/uL (150-400) NEUTROPHIL % 62.2 % (50-75) LYMPH % 26.9 % (25-40) MONO % 8.7 % (3-14) EOSINOPHIL % 1.8 % (0-4) BASOPHIL % 0.4 % (0-2) PT with INR: (ROX: 12/17/2016 04:00) ( MsgRcvd 12/17/2016 04:51) Final results Test Result Flag Units (Reference) INR 0.9 (0.8-1.2) Low Intensity Therapy: INR 1.5-2.0 PT range 18.5-23.1Mod.Intensity Therapy: INR 2.0-3.0 PT range 23.1-31.5High Intensity Therapy: INR 2.5-3.5 PT range 27.4-35.5High Intensity Therapy 2: INR 3.0-4.0 PT range 31.5-39.3 APTT 31 SECONDS (24-34) TSH: (ROX: 12/17/2016 04:00) ( [facility] 12/17/2016 05:09) Final results Test Result Flag Units (Reference) THYROID STIMULATING HORMONE 0.371 uIU/mL (0.30-3.74) Urine Drug Screen: (ROX: 12/17/2016 04:15) ( [facility] 12/17/2016 05:01) Final results Test Result Flag Units (Reference) AMPHETAMINE/METHAMPHETAMINE POSITIVE H (NEGATIVE) BARBITURATE NEGATIVE (NEGATIVE) BENZODIAZEPINE NEGATIVE (NEGATIVE) CANNABINOID NEGATIVE (NEGATIVE) COCAINE NEGATIVE (NEGATIVE) ECSTASY POSITIVE H (NEGATIVE) METHADONE NEGATIVE (NEGATIVE) OPIATE POSITIVE H (NEGATIVE) The urine drug screen is a qualitative screening test fordrug overdose and abuse. All screen results should beconsidered as presumptive.Drugs screened for are as follows:BenzodiazepinesCocaineAmphetamines/MetamphetaminesTHC (Tetrahydrocannabinol)OpiatesBarbituratesEcstasyMethadonePositive results are unconfirmed. For confirmation, notifythe lab for the specimen to be sent to the reference lab.All confirmations must be performed by a differentmethodology.The ingestion of natural herbal and plant productscontaining Ephedra/Ephedra metabolites can produce in urineone or more substances capable of cross reacting withamphetamine/methamphetamine immunoassays. These testsprovide a preliminary result only. A more specificalternative chemical method must be used to obtain aconfirmed analytical result. BNP: (ROX: 12/17/2016 04:00) ( [facility] 12/17/2016 05:02) Final results Test Result Flag Units (Reference) B-TYPE NATRIURETIC PEPTIDE 126 H pg/ml (5-100) Lipase: (ROX: 12/17/2016 04:00) ( [facility] 12/17/2016 05:09) Final results Test Result Flag Units (Reference) LIPASE 69 L U/L (73-393) AMYLASE 35 U/L (25-115) CPK 67 U/L (24-260) TROPONIN I <0.05 L ng/mL (0.00-1.5) TROPONIN REFERENCE RANGE:<0.1 NEGATIVE0.1-1.5 INDETERMINANT>1.5 POSITIVE CMP: (ROX: 12/17/2016 04:00) ( MsgRcvd 12/17/2016 05:01) Final results Test Result Flag Units (Reference) GLUCOSE 112 H mg/dL (70-110) BUN 14 mg/dL (7-18) CREATININE 1.0 mg/dL (0.6-1.3) Estimated GFR >60 mL/min Estimated GFR- >60 mL/min Note: Persistent reduction over 3 months in eGFR<60 mL/min/1.73 m2 defines CKD. Patients with eGFR values>=60 mL/min/1.73 m2 may also have CKD if evidence ofpersistent proteinuria. Additional information may be foundat www.kidney.org. SODIUM 140 mmol/L (136-145) POTASSIUM 3.8 mmol/L (3.5-5.1) CHLORIDE 105 mmol/L (98-107) CARBON DIOXIDE 28 mmol/L (21-32) CALCIUM 8.9 mg/dL (8.5-10.1) TOTAL PROTEIN 7.4 g/dL (6.4-8.2) ALBUMIN 3.3 g/dL (3.3-5.0) BILIRUBIN, TOTAL 0.3 mg/dL (0.0-1.0) ALKALINE PHOSPHATASE 101 U/L (46-116) AST (SGOT) 13 L U/L (15-37) ALT (SGPT) 30 U/L (12-78) . PROGRESS AND PROCEDURES Course of Care: Patient is stable. Patient/family counseled. Old medical records reviewed. Disposition: Discharged. Condition: stable. CLINICAL IMPRESSION Dizziness Substance abuse- methamphetamines. Fall from bed. INSTRUCTIONS No driving or operating machinery. Warnings: GENERAL WARNINGS: Return or contact your physician immediately if your condition worsens or changes unexpectedly, if not improving as expected, or if other problems arise. Your Current Medications: CONTINUE TAKING THE FOLLOWING MEDICATIONS: AmLODIPine Besylate Oral : 10 mg daily. BuPROPion HCl Oral : 150 mg 2x a day. Cymbalta Oral : 40 mg twice a day. Estradiol 9.5 mg q day (1-21 0*. HCTZ 25 mg q dqy*. Levothyroxine Sodium Oral : 125 mcg daily. LORazepam Oral : 1 mg 3x a day. MS Contin Oral : 30 mg 3x a day. MS Contin Oral : 10mg at bedtime. MS Contin Oral : 30 mg 3x a day. CONTINUE TAKING THE FOLLOWING MEDICATIONS UNTIL YOU CHECK WITH YOUR PHYSICIAN: Ambien Oral : 10 mg at bedtime. Understanding of the discharge instructions verbalized by patient. Follow-up with: Franco Centeno MD, [facility], [phone], [facility], [address] [place] [address].[place] [address] Follow up today. Call for the next available appointment. (Electronically signed by Ovidio Lee MD 12/17/2016 9:24)
--- NOTE | 2016-12-17 09:24 | ED MED RECONCILIATION SUMMARY ---
Patient: PEDRO LUIS ORELLANA V Medication Reconciliation Report [facility] VisitID: [id number] [address] [place] [address] 61y, F Registration Date/Time: 12/17/2016 Weight: 98.4 kg Height/Length: 67 in. BMI: 34.0 ALLERGIES: Ibuprofen, Iodine, IV Contrast, Latex The patient's Home Medications are listed below: CONTINUE TAKING THE FOLLOWING MEDICATIONS: AmLODIPine Besylate Oral 10 mg, daily BuPROPion HCl Oral 150 mg, 2x a day Cymbalta Oral 40 mg, twice a day Estradiol 9.5 mg q day (1-21 0 HCTZ 25 mg q dqy Levothyroxine Sodium Oral 125 mcg, daily LORazepam Oral 1 mg, 3x a day MS Contin Oral 30 mg, 3x a day MS Contin Oral 10mg, at bedtime MS Contin Oral 30 mg, 3x a day CONTINUE TAKING THE FOLLOWING MEDICATIONS UNTIL YOU CHECK WITH YOUR PHYSICIAN: Ambien Oral 10 mg, at bedtime THE FOLLOWING MEDICATIONS NEED TO BE RECONCILED: HCTZ 25 mg q dqy The source(s) of the original Home Medication information: Not obtained. The following Medications were given to the patient in the Emergency Department: IV NS IV Fluids bolus 250 mL over 15 minute(s), then 100 mL/hr, administered: 12/17/2016 4:35:00 AM The following Medications were prescribed to the patient: None.
--- NOTE | 2016-12-17 09:24 | ED MAR SUMMARY ---
..... Medication Administration Record [facility] [address] [place] [address] Patient: PEDRO LUIS ORELLANA V Visit ID: [id number] 61y, F Weight: 98.4 kg Height/Length: 67 in BMI: 34 ALLERGIES: Iodine, Latex, Ibuprofen, IV Contrast Start 04:35 12/17/2016 Lino Moore RErnie, Stop 07:45 12/17/2016 Lucio Helton R.N. Medication Administered: IV NS (SALINE), Dose: IV Fluids over 6 hour(s), Rate: 100 mL/hr, Bolus: 250 mL over 15 minute(s), Dispensed: 250 mL bag, Site: #1 left. Medication Ordered: IV NS : initial bolus 250 mL (1000 mL/hr), then 100 mL/hr for 6h (NOW); Urgent (After orthostatics please).
--- NOTE | 2016-12-17 09:24 | ED MAR SUMMARY ---
..... Medication Administration Record [facility] [address] [place] [address] Patient: PERDO LUIS ORELLANA V Visit ID: [id number] 61y, F Weight: 98.4 kg Height/Length: 67 in BMI: 34 ALLERGIES: Iodine, Latex, Ibuprofen, IV Contrast Start 04:35 12/17/2016 Lino Moore RErnie, Stop 07:45 12/17/2016 Lucio Helton R.N. Medication Administered: IV NS (SALINE), Dose: IV Fluids over 6 hour(s), Rate: 100 mL/hr, Bolus: 250 mL over 15 minute(s), Dispensed: 250 mL bag, Site: #1 left. Medication Ordered: IV NS : initial bolus 250 mL (1000 mL/hr), then 100 mL/hr for 6h (NOW); Urgent (After orthostatics please).
--- NOTE | 2016-12-17 09:24 | ED MED RECONCILIATION SUMMARY ---
Patient: PEDRO LUIS ORELLANA V Medication Reconciliation Report [facility] VisitID: [id number] [address] [place] [address] 61y, F Registration Date/Time: 12/17/2016 Weight: 98.4 kg Height/Length: 67 in. BMI: 34.0 ALLERGIES: Ibuprofen, Iodine, IV Contrast, Latex The patient's Home Medications are listed below: CONTINUE TAKING THE FOLLOWING MEDICATIONS: AmLODIPine Besylate Oral 10 mg, daily BuPROPion HCl Oral 150 mg, 2x a day Cymbalta Oral 40 mg, twice a day Estradiol 9.5 mg q day (1-21 0 HCTZ 25 mg q dqy Levothyroxine Sodium Oral 125 mcg, daily LORazepam Oral 1 mg, 3x a day MS Contin Oral 30 mg, 3x a day MS Contin Oral 10mg, at bedtime MS Contin Oral 30 mg, 3x a day CONTINUE TAKING THE FOLLOWING MEDICATIONS UNTIL YOU CHECK WITH YOUR PHYSICIAN: Ambien Oral 10 mg, at bedtime THE FOLLOWING MEDICATIONS NEED TO BE RECONCILED: HCTZ 25 mg q dqy The source(s) of the original Home Medication information: Not obtained. The following Medications were given to the patient in the Emergency Department: IV NS IV Fluids bolus 250 mL over 15 minute(s), then 100 mL/hr, administered: 12/17/2016 4:35:00 AM The following Medications were prescribed to the patient: None.
--- NOTE | 2016-12-17 09:24 | ED DISCHARGE INSTRUCTIONS ---
Patient: PEDRO LUIS ORELLANA V General Instructions [facility] VisitID: [id number] [place] [address] 61y, F Registration Date/Time: 12/17/2016 Dizziness Substance abuse- methamphetamines. Fall from bed. INSTRUCTIONS No driving or operating machinery. Warnings: GENERAL WARNINGS: Return or contact your physician immediately if your condition worsens or changes unexpectedly, if not improving as expected, or if other problems arise. Your Current Medications: CONTINUE TAKING THE FOLLOWING MEDICATIONS: AmLODIPine Besylate Oral : 10 mg daily. BuPROPion HCl Oral : 150 mg 2x a day. Cymbalta Oral : 40 mg twice a day. Estradiol 9.5 mg q day (1-21 0*. HCTZ 25 mg q dqy*. Levothyroxine Sodium Oral : 125 mcg daily. LORazepam Oral : 1 mg 3x a day. MS Contin Oral : 30 mg 3x a day. MS Contin Oral : 10mg at bedtime. MS Contin Oral : 30 mg 3x a day. CONTINUE TAKING THE FOLLOWING MEDICATIONS UNTIL YOU CHECK WITH YOUR PHYSICIAN: Ambien Oral : 10 mg at bedtime. Understanding of the discharge instructions verbalized by patient. Follow-up with: Franco Centeno MD, [facility], [phone], [facility], [address] [place] [address] Follow up today. Call for the next available appointment. ADDITIONAL INFORMATION Fall, Uncertain Cause You have had a fall today. but the cause of your fall is not certain. Falls can occur due to slipping, tripping or losing your balance. A fall can also occur from a fainting spell or seizure. Because the cause of your fall today is not certain, it is possible that a fainting spell or seizure was the cause. This means that it could happen again, without warning. If you fall again, without a cause, then you should return to this facility promptly to have further tests. Otherwise, follow up with your doctor as explained below. Home Care: 1) Rest today and resume your normal activities as soon as you are feeling back to normal. It is best to remain with someone who can check on you for the next 24 hours to watch for another episode of falling. 2) If you were injured during the fall, follow the advice from your doctor regarding care of your injury. 3) If you become light-headed or dizzy, lie down immediately or sit and lean forward with your head down. 4) As a precaution, do not drive a car or operate dangerous equipment, do not take a bath alone (use a shower instead) and do not swim alone until you see your doctor. A condition causing fainting or seizures must be ruled out before resuming these activities. 5)You may use acetaminophen (Tylenol) or ibuprofen (Motrin, Advil) to control pain, unless another pain medicine was prescribed. [ NOTE : If you have chronic liver or kidney disease or ever had a stomach ulcer or GI bleeding, talk with your doctor before using these medicines.] 6) Keep your appointments for any further testing that may have been scheduled for you. Follow Up: Unless, given other advice, call your doctor on the next office day to advise of your fall and to schedule an appointment. Get Prompt Medical Attention if any of the following occur: -- Another unexplained fall -- Dizziness, fainting or seizure -- Severe headache -- Chest pain or shortness of breath -- Palpitations (very rapid or very slow or irregular heart beat) -- Blood in vomit, stools (black or red color) -- Weakness of an arm or leg or one side of the face -- Difficulty with speech or vision Dizziness [Uncertain Cause] Dizziness is a common symptom sometimes described as "lightheadedness" or feeling like you are going to faint. If it lasts for only a few seconds and is related to changes in position (such as getting up after lying or sitting for a long time), it is usually not a sign of anything serious. Dizziness that lasts for minutes to hours, or comes on for no apparent reason, may be a sign of a more serious problem (such as dehydration, a medicine reaction, disease of the heart or brain). Today's exam did not show an exact cause for your dizzy spell . Sometimes additional tests are required before a cause can be found. Therefore, it is important to follow up with your doctor if your symptoms continue. Home Care: 1) If a dizzy spell occurs and lasts more than a few seconds, lie down until it passes. If you are lying down, then you cannot hurt yourself by falling if you do faint. 2) Do not drive or operate dangerous equipment until the dizzy spells have stopped for at least 48 hours. 3) If dizzy spells occur with sudden standing, this may be a sign of mild dehydration. Drink extra fluids over the next few days. 4) If you recently started a new medicine or if you had the dose of a current medicine increased (especially blood pressure medicine), talk with the prescribing doctor about your symptoms. Dose adjustments may be needed. Follow Up with your doctor for further evaluation within the next seven days, if your symptoms continue. Get Prompt Medical Attention if any of the following occur: -- Worsening of your symptoms -- Fainting, headache or seizure -- Repeated vomiting -- Feeling like you or the room is spinning -- Chest, arm, neck, back or jaw pain -- Palpitations (the sense that your heart is fluttering or beating fast or hard) -- Shortness of breath -- Blood in vomit or stool (black or red color) -- Weakness of an arm or leg or one side of the face -- Difficulty with speech or vision Drug Abuse Use and abuse of such drugs as marijuana, amphetamines (speed, crank), cocaine, heroin or prescription pain medicines (Vicodin, codeine), sedatives and sleeping pills (Valium, Klonopin), PCP, mescaline and LSD may lead to addiction or dependence. Once this occurs, you are at greater risk for any of the following: Craving for the drug and unable to stop using the drug even though you think you want to stop (psychological dependence) Drug withdrawal symptoms if you stop taking the drug (physical dependence) Loss of your job or your family Arrest, conviction and assisted sentence for possession of an illegal substance or for driving under the influence of such a substance Accidental injuries to yourself or others while you are under the influence of the drug (in a car or at home). HIV infection (much greater risk if you use IV drugs) Other sexually transmitted diseases (herpes, chlamydia, gonorrhea and others) Severe and fatal infection of the heart valves (if you use IV drugs) Stroke, heart attack, hepatitis B or C, kidney failure from overdose Home Care: Admit you have a drug problem. Ask for help from your family and close friends. Seek professional help. This could be in the form of individual psychotherapy or counseling or an outpatient, inpatient, or residential drug treatment program. Join a self-help group for drug abuse. Avoid friends who abuse drugs themselves or tempt you to continue abusing drugs. Eat a balanced diet and begin a regular exercise program. Follow Up with your doctor or as advised by our staff. Contact one of the resources below for help. National [place] on Alcoholism and Drug Dependence www.ncadd.org 969-780-QIQH Narcotics Anonymous www.na.org 994-115-0169 [place] Alcohol and Substance Abuse Information [facility] (for referral to treatment programs) www.[employer]care[employer] 924-452-5147 Get Prompt Medical Attention if any of the following occur: Agitation, anxiety, unable to sleep Unintended weight loss (more than 10 to 15 pounds over 3 months) Seizure Chest pain Fever of 100.4F (38C) or higher, or as directed by your healthcare provider Excess drowsiness or inability to be awakened Shortness of breath Slow breathing under 8 breaths per minute Cough with colored sputum Redness, swelling or tenderness at an injection site You have been given the following additional information: Fall, Uncertain Cause Dizziness, Unk Cause Drug Abuse No driving or operating machinery. (Electronically signed by Ovidio Lee MD 12/17/2016 9:24)
--- NOTE | 2016-12-17 09:24 | ED DISCHARGE INSTRUCTIONS ---
Patient: PEDRO LUIS ORELLANA V General Instructions [facility] VisitID: [id number] [place] [address] 61y, F Registration Date/Time: 12/17/2016 Dizziness Substance abuse- methamphetamines. Fall from bed. INSTRUCTIONS No driving or operating machinery. Warnings: GENERAL WARNINGS: Return or contact your physician immediately if your condition worsens or changes unexpectedly, if not improving as expected, or if other problems arise. Your Current Medications: CONTINUE TAKING THE FOLLOWING MEDICATIONS: AmLODIPine Besylate Oral : 10 mg daily. BuPROPion HCl Oral : 150 mg 2x a day. Cymbalta Oral : 40 mg twice a day. Estradiol 9.5 mg q day (1-21 0*. HCTZ 25 mg q dqy*. Levothyroxine Sodium Oral : 125 mcg daily. LORazepam Oral : 1 mg 3x a day. MS Contin Oral : 30 mg 3x a day. MS Contin Oral : 10mg at bedtime. MS Contin Oral : 30 mg 3x a day. CONTINUE TAKING THE FOLLOWING MEDICATIONS UNTIL YOU CHECK WITH YOUR PHYSICIAN: Ambien Oral : 10 mg at bedtime. Understanding of the discharge instructions verbalized by patient. Follow-up with: Franco Centeno MD, [facility], [phone], [facility], [address] [place] [address] Follow up today. Call for the next available appointment. ADDITIONAL INFORMATION Fall, Uncertain Cause You have had a fall today. but the cause of your fall is not certain. Falls can occur due to slipping, tripping or losing your balance. A fall can also occur from a fainting spell or seizure. Because the cause of your fall today is not certain, it is possible that a fainting spell or seizure was the cause. This means that it could happen again, without warning. If you fall again, without a cause, then you should return to this facility promptly to have further tests. Otherwise, follow up with your doctor as explained below. Home Care: 1) Rest today and resume your normal activities as soon as you are feeling back to normal. It is best to remain with someone who can check on you for the next 24 hours to watch for another episode of falling. 2) If you were injured during the fall, follow the advice from your doctor regarding care of your injury. 3) If you become light-headed or dizzy, lie down immediately or sit and lean forward with your head down. 4) As a precaution, do not drive a car or operate dangerous equipment, do not take a bath alone (use a shower instead) and do not swim alone until you see your doctor. A condition causing fainting or seizures must be ruled out before resuming these activities. 5)You may use acetaminophen (Tylenol) or ibuprofen (Motrin, Advil) to control pain, unless another pain medicine was prescribed. [ NOTE : If you have chronic liver or kidney disease or ever had a stomach ulcer or GI bleeding, talk with your doctor before using these medicines.] 6) Keep your appointments for any further testing that may have been scheduled for you. Follow Up: Unless, given other advice, call your doctor on the next office day to advise of your fall and to schedule an appointment. Get Prompt Medical Attention if any of the following occur: -- Another unexplained fall -- Dizziness, fainting or seizure -- Severe headache -- Chest pain or shortness of breath -- Palpitations (very rapid or very slow or irregular heart beat) -- Blood in vomit, stools (black or red color) -- Weakness of an arm or leg or one side of the face -- Difficulty with speech or vision Dizziness [Uncertain Cause] Dizziness is a common symptom sometimes described as "lightheadedness" or feeling like you are going to faint. If it lasts for only a few seconds and is related to changes in position (such as getting up after lying or sitting for a long time), it is usually not a sign of anything serious. Dizziness that lasts for minutes to hours, or comes on for no apparent reason, may be a sign of a more serious problem (such as dehydration, a medicine reaction, disease of the heart or brain). Today's exam did not show an exact cause for your dizzy spell . Sometimes additional tests are required before a cause can be found. Therefore, it is important to follow up with your doctor if your symptoms continue. Home Care: 1) If a dizzy spell occurs and lasts more than a few seconds, lie down until it passes. If you are lying down, then you cannot hurt yourself by falling if you do faint. 2) Do not drive or operate dangerous equipment until the dizzy spells have stopped for at least 48 hours. 3) If dizzy spells occur with sudden standing, this may be a sign of mild dehydration. Drink extra fluids over the next few days. 4) If you recently started a new medicine or if you had the dose of a current medicine increased (especially blood pressure medicine), talk with the prescribing doctor about your symptoms. Dose adjustments may be needed. Follow Up with your doctor for further evaluation within the next seven days, if your symptoms continue. Get Prompt Medical Attention if any of the following occur: -- Worsening of your symptoms -- Fainting, headache or seizure -- Repeated vomiting -- Feeling like you or the room is spinning -- Chest, arm, neck, back or jaw pain -- Palpitations (the sense that your heart is fluttering or beating fast or hard) -- Shortness of breath -- Blood in vomit or stool (black or red color) -- Weakness of an arm or leg or one side of the face -- Difficulty with speech or vision Drug Abuse Use and abuse of such drugs as marijuana, amphetamines (speed, crank), cocaine, heroin or prescription pain medicines (Vicodin, codeine), sedatives and sleeping pills (Valium, Klonopin), PCP, mescaline and LSD may lead to addiction or dependence. Once this occurs, you are at greater risk for any of the following: Craving for the drug and unable to stop using the drug even though you think you want to stop (psychological dependence) Drug withdrawal symptoms if you stop taking the drug (physical dependence) Loss of your job or your family Arrest, conviction and group home sentence for possession of an illegal substance or for driving under the influence of such a substance Accidental injuries to yourself or others while you are under the influence of the drug (in a car or at home). HIV infection (much greater risk if you use IV drugs) Other sexually transmitted diseases (herpes, chlamydia, gonorrhea and others) Severe and fatal infection of the heart valves (if you use IV drugs) Stroke, heart attack, hepatitis B or C, kidney failure from overdose Home Care: Admit you have a drug problem. Ask for help from your family and close friends. Seek professional help. This could be in the form of individual psychotherapy or counseling or an outpatient, inpatient, or residential drug treatment program. Join a self-help group for drug abuse. Avoid friends who abuse drugs themselves or tempt you to continue abusing drugs. Eat a balanced diet and begin a regular exercise program. Follow Up with your doctor or as advised by our staff. Contact one of the resources below for help. National [place] on Alcoholism and Drug Dependence www.ncadd.org 661-340-HXHK Narcotics Anonymous www.na.org 209-688-5039 [employer] Alcohol and Substance Abuse Information Center (for referral to treatment programs) www.addictioncareSynchrony 185-508-5080 Get Prompt Medical Attention if any of the following occur: Agitation, anxiety, unable to sleep Unintended weight loss (more than 10 to 15 pounds over 3 months) Seizure Chest pain Fever of 100.4F (38C) or higher, or as directed by your healthcare provider Excess drowsiness or inability to be awakened Shortness of breath Slow breathing under 8 breaths per minute Cough with colored sputum Redness, swelling or tenderness at an injection site You have been given the following additional information: Fall, Uncertain Cause Dizziness, Unk Cause Drug Abuse No driving or operating machinery. (Electronically signed by Ovidio Lee MD 12/17/2016 9:24)
== END 2016-12-17 07:51 | disposition home or self-care (01) ==
LOC: ED SRH 03:45
DX: R42 Dizziness and giddiness (principal); F15.10 Other stimulant abuse, uncomplicated; W06.XXXA Fall from bed, initial encounter; Y93.89 Activity, other specified; Y92.019 Unspecified place in single-family (private) house as the place of occurrence of the external cause; Y99.9 Unspecified external cause status; R00.2 Palpitations; I10 Essential (primary) hypertension; E03.9 Hypothyroidism, unspecified; K21.9 Gastro-esophageal reflux disease without esophagitis; Z79.891 Long term (current) use of opiate analgesic
CPT/HCPCS: 81460; 90004; 90100; 90616; 91320; 92235; 92530; 92610; 92760; 92761; 92762; 92763; 92764; 92765; 92766; 92767; 93140; 94001; 94060; 95059

== ENCOUNTER 2017-02-20 14:00 | Outpatient (CLI) | payer OTHER | END 2017-02-20 23:00 | disposition home or self-care (01) | LOC: LAB SRH 14:00 | DX: R10.13 Epigastric pain (principal); R19.7 Diarrhea, unspecified | CPT/HCPCS: 90074; 90100; 92235; 95059 ==